=== PATIENT | male | born 1955 | race Caucasian/White ===

== ENCOUNTER 2020-08-31 14:17 | Emergency (ER) | payer OTHER, SELFPAY ==
[2020-08-31 14:23] VITALS: BP 132/73; BP 160/70; PULSE 70; PULSE 78; RESP 16; TEMP 37.5; O2SAT 99; BMI 38.7
--- NOTE | 2020-08-31 14:36 | XR_ITS ---
EXAMINATION: XR CHEST CLINICAL INFORMATION: SOB and cough. COMPARISON: Chest 06/23/2019 TECHNIQUE: Frontal view of the chest was obtained. FINDINGS: Lungs are well-expanded with patchy hazy opacities seen in both midlungs and lower lobes since 06/23/2019. No confluent infiltrate or pleural effusion seen. The heart size and pulmonary vascularity is normal. There is moderate spondylosis dorsal spine. XR/XR chest 1V IMPRESSION: There is new patchy hazy opacities in both midlungs suspicious for developing infiltrates.
--- NOTE | 2020-08-31 14:36 | ED.GENADULT ---
HPI - General Adult General Chief complaint: General Medical Stated complaint: FLU LIKE SYMPTOMS Time Seen by Provider: 08/31/20 14:24 Source: patient Mode of arrival: ambulatory Limitations: no limitations History of Present Illness HPI narrative: 65 y/o male with history of HTN & DM who presents with 3 days of flu-like symptoms including body aches, nasal congestion, nausea, decreased appetite, SOB, dry cough and intermittent dizziness. He lives with his girlfriend who is COVID-19 positive and they have been continuing to sleep in the same bed. He states he gets dizzy when he changes position too quickly and it resolves within a few seconds. He has been drinking gastorade and eating soup but has nausea when he eats. Two episodes of loose stools yesterday but now resolved. No vomiting, abd pain, fever, chills, urinary symptoms. MD complaint: COVID symptoms Onset (ago): day(s) (3) Location: head and abdomen Radiation: non-radiation Severity: moderate Quality: aching Pain Consistency: intermittent Relieving factors: rest Exacerbating factors: movement Associated symptoms: cough, headaches, loss of appetite and malaise Treatments prior to arrival: none Related Data Previous Rx's Medication Instructions Recorded azithromycin [Zithromax Z-Fei] See Rx Instructions .ROUTE 08/31/20 .COMPLEX #6 tab prednisone 40 mg PO DAILY 5 Days #10 tab 08/31/20 Allergies Allergy/AdvReac Type Severity Reaction Status Date / Time acetaminophen [Percocet] Allergy Unknown Verified 10/25/19 00:00 oxycodone [From PERCOCET] Allergy Unknown SWELLING Unverified 05/22/20 15:37 DIZZINESS Review of Systems Review of Systems: Constitutional: No Fever, No Chills ENT/Mouth: No sore throat, No Rhinorrhea, No Swallowing Difficulty Eyes: No Eye Pain, No Swelling, No Redness Cardiovascular: No Chest Pain, No SOB, No Orthopnea, No Edema Respiratory: + Cough, No Sputum, No Wheezing, No dyspnea Gastrointestinal: + Nausea, No Vomiting, + Diarrhea, No abdominal Pain Genitourinary: No Dysuria, No Urinary Frequency, No Hematuria Musculoskeletal: No joint pain, + Myalgias Skin: No Skin Lesions, No rash Neuro: + Weakness (mild, generalized), No Numbness, + Dizziness, + Headache Psych: No Anxiety/Panic, No Depression Heme/Lymph: No Bruising, No Lymphadenopathy Endocrine: No Polyuria, No Polydipsia [facility] Past Medical History Medical History (Updated 08/31/20 @ 15:11 by BARRY Johnson) Diabetic acetonemia HTN (hypertension) Social History Social History Advance Directives: No Advance Directives Information Provided: No Physical Exam Vital Signs: Vital Signs: Last Vital Signs Temp 99.5 F 08/31/20 14:23 Pulse 78 08/31/20 14:23 Resp 16 08/31/20 14:23 BP 132/73 08/31/20 14:23 Pulse Ox 99 08/31/20 14:23 Body Mass Index 38.7 Appearance: Alert. Oriented X3. No acute distress. Eyes: Pupils equal, round and reactive to light. ENT: Pharynx normal. Neck: Normal inspection. Neck supple. CVS: Normal heart rate and rhythm. Pulses normal. Respiratory: No respiratory distress. Breath sounds normal. Abdomen: Soft and nontender. +BS x4 Skin: Skin warm and dry. Normal skin color. Normal skin turgor. No rashes. Extremities: No lower extremity edema. Negative Hannah's sign Neuro: Oriented X 3. No motor deficit. No sensory deficit. Course Course Course Narrative: 65 y/o male with history of HTN and DM presents with COVID-19 symptoms x3 days after direct exposure. His vital signs are normal aside from low grade temp 99.5. Exam is benign. Will check resp panel and orthostatic VS. Toradol and Zofran ordered as well as gentle IVF. Anticipate d/c once gently hydrated. Medical Decision Making Lab Data Labs: Lab Results 08/31/20 Range/Units 15:23 Coronavirus (PCR) POSITIVE A (Negative) Influenza Type A (PCR) NEGATIVE (Negative) Influenza Type B (PCR) NEGATIVE (Negative) RSV RNA Qual (PCR) NEGATIVE (Negative) Discharge Plan Discharge Clinical Impression: COVID-19 Patient Disposition: Home, Self-Care Instructions: COVID-19 (Coronavirus Disease 2019) (ED) Additional Instructions: You were found to be COVID-19 POSITIVE today. Your vital signs were normal. It is safe for you to be discharged from the hospital at this time. It is important that you rest & stay hydrated. Do not go out in public for the next 2 weeks. Take the prescribed antibiotic and steroid for abnormal chest x-ray. Start taking these today. Take over the counter cold/flu medications as needed for your symptoms. Take Tylenol and/or Motrin as needed for body aches, headaches, and fevers. Follow up with your doctor this week. If you develop shortness of breath, difficulty breathing, chest pain or any other concerning symptom to you call 911 or come back to the ER for further evaluation. Prescriptions: New azithromycin [Zithromax Z-Fei] 250 mg tablet See Rx Instructions .ROUTE .COMPLEX Qty: 6 RF: 0 prednisone 20 mg tablet 40 mg PO DAILY 5 Days Qty: 10 RF: 0
[2020-08-31] MEDS: Ketorolac Tromethamine 30 MG/ML VIAL IM (14:52)
[2020-08-31] MEDS: 0.9 % Sodium Chloride 1,000 ML 999 ML IVCONT (14:53)
[2020-08-31 16:08] LABS: Influenza A PCR NEGATIVE (Negative); Influenza B PCR NEGATIVE (Negative); Resp Syncy Virus RNA Qual PCR NEGATIVE (Negative); SARS COV2 PCR INHOUSE POSITIVE (Negative)
== END 2020-08-31 16:24 | disposition home or self-care (01) ==
PROVIDERS: Physician Assistant; Emergency Provider Emergency Medicine Emergency Medical Services
DX: U07.1 COVID-19 (principal); M79.10 Myalgia, unspecified site; R05 Cough; Z79.899 Other long term (current) drug therapy
CPT/HCPCS: 0241U; 71045; 96360; 96372; 99283; 99284; J1885

== ENCOUNTER → 2021-01-01 08:03 | Outpatient (BNVA) | payer OTHER, SELFPAY | PROVIDERS: PCP Family Medicine; Visit Provider Nurse Practitioner | CPT/HCPCS: Q3014 ==

== ENCOUNTER 2021-01-06 06:22 | Outpatient (REF) | payer OTHER, SELFPAY ==
[2021-01-06 07:45] LABS: Alanine Aminotransferase 16 U/L (0-40); Albumin Level 4.2 g/dL (3.5-5.0); Alkaline Phosphatase 95 U/L (39-117); Anion Gap 10 (12-20); Aspartate Amino Transferase 19 U/L (5-37); Bilirubin Total 0.6 mg/dL (0.0-1.0); Blood Urea Nitrogen 14 mg/dL (9-16); Calcium 9.6 mg/dL (8.4-10.2); Carbon Dioxide 30 mmol/L (22-29); Chloride 105 mmol/L (96-108); Estimated Glomerular Filt Rate > 60; Glucose Random 140 mg/dL (60-115); Potassium 4.1 mmol/L (3.3-5.1); Sodium 141 mmol/L (135-145); Total Protein 7.1 g/dL (6.5-8.0)
== END 2021-01-06 06:23 | disposition home or self-care (01) ==
LOC: HO.LAB 06:22
PROVIDERS: PCP Family Medicine; Visit Provider Nurse Practitioner
DX: Z12.11 Encounter for screening for malignant neoplasm of colon (principal)
CPT/HCPCS: 36415; 80053

== ENCOUNTER 2021-02-17 06:19 | Day surgery (SDC) | payer OTHER, SELFPAY ==
--- NOTE | 2021-02-16 09:48 | HO.ANESPROP2 ---
Documented by User: Natalie Oliveira 02/16/21 09:52 HPI - Anesthesia Eval Consult details Narrative: 65yo M for Colonoscopy PMFSH Active Problems Active Problems: All Active Problems (Updated 01/01/21 @ 08:41 by MILO Rice) Colon cancer screening (Acute) COVID-19 (Acute) Past Medical History Medical History Diabetic acetonemia HTN (hypertension) Family History Family History Mother Cancer HTN (hypertension) Diabetes Father Stroke Surgical History Surgical History H/O shoulder surgery Social History Social History Household Members: Friend(s) Alcohol intake: current Alcohol intake frequency: does not drink Patient Tobacco Use Status: Former Tobacco user Use of substances other than those prescribed or required for medical reasons: No Are you DNR?: No Advance Directives: No Advance Directives Information Provided: No Meds Allergies Allergy/AdvReac Type Severity Reaction Status Date / Time acetaminophen [Percocet] Allergy Mild Dizziness Verified 02/17/21 06:31 oxycodone [From PERCOCET] Allergy Mild SWELLING Verified 02/17/21 06:31 DIZZINESS Home Medications Medication Instructions Recorded Confirmed Last Taken Type lisinopril 20 mg tablet 20 mg PO DAILY 01/01/21 02/17/21 05:25 History metformin 500 mg tablet 500 mg PO DAILY 01/01/21 Unknown History Exam Exam Date and Time: February 16, 2021 0948 Pertinent Lab Results Pertinent Lab Results: Laboratory Tests 10/05/19 01/06/21 01:12 06:35 WBC 5.2 Hgb 14.9 Hct 46.4 Plt Count 193 Sodium 141 Potassium 4.1 Chloride 105 Carbon Dioxide 30 H BUN 14 Creatinine 1.10 Assessment and Plan Assessment Anesthesia Assessment: Chart Reviewed Documented by User: Giovany Blas 02/17/21 07:16 [facility] Past Medical History Medical History Diabetic acetonemia HTN (hypertension) Family History Family History Mother Cancer HTN (hypertension) Diabetes Father Stroke Surgical History Surgical History H/O shoulder surgery Social History Social History Household Members: Friend(s) Alcohol intake: current Alcohol intake frequency: does not drink Patient Tobacco Use Status: Former Tobacco user Use of substances other than those prescribed or required for medical reasons: No Are you DNR?: No Advance Directives: No Advance Directives Information Provided: No Meds Allergies Allergy/AdvReac Type Severity Reaction Status Date / Time acetaminophen [Percocet] Allergy Mild Dizziness Verified 02/17/21 06:31 oxycodone [From PERCOCET] Allergy Mild SWELLING Verified 02/17/21 06:31 DIZZINESS Home Medications Medication Instructions Recorded Confirmed Last Taken Type lisinopril 20 mg tablet 20 mg PO DAILY 01/01/21 02/17/21 05:25 History metformin 500 mg tablet 500 mg PO DAILY 01/01/21 Unknown History Exam Airway Mallampati Class: III TM Dist: >3cm Neck ROM: Full Denture: Lower
[2021-02-17 06:42] VITALS: BMI 38.4
[2021-02-17 06:43] LABS: Glucose, Whole Blood 138 mg/dL (60-115)
[2021-02-17 06:45] VITALS: BP 147/85; PULSE 72; RESP 18; TEMP 36.7; O2SAT 98
[2021-02-17] MEDS: Lactated Ringers 1,000 ML 100 ML IVCONT (06:52)
--- NOTE | 2021-02-17 07:22 | MHC.SHP ---
Pre-Procedural Eval Section A The patient is an INPATIENT: No The History & Physical has been completed within 30 days and I have reviewed it.: No Section B Chief Complaint: Screening Details of Present Illness: Colon cancer screening, constipation, hemorrhoids Relevant Family History (Specify if Yes): Yes Relevant Social History: None Present Medications: see Short Stay Collaborative assessment Medical History: Significant History (Diabetic acetonemia HTN (hypertension)) History of Previous Operations: Relevant previous surgery/procedure and date(s) (History of shoulder surgery) Allergies: Allergies Allergy/AdvReac Type Severity Reaction Status Date / Time acetaminophen [Percocet] Allergy Mild Dizziness Verified 02/17/21 06:31 oxycodone [From PERCOCET] Allergy Mild SWELLING Verified 02/17/21 06:31 DIZZINESS Review of Systems Sugical H&P ROS: Negative: Constitution, Cardiovascular, Respiratory and Gastrointestinal Exam Surgical H&P Exam: Normal: Heart, Normal: Lungs, Normal: Extremities and Normal: Abdomen Plan Diagnosis/Plan: Unchanged I have reviewed the history and physical and performed a pertinent physical examination on my patient. No changes have occurred unless specified.
--- NOTE | 2021-02-17 07:41 | P.OP_ITS ---
Operative Note Operative Note Date of Service: 02/17/21 Narrative: Pre-op diagnosis: colon cancer screening, chronic constipation Post-op diagnosis: other (Colon polyps, diverticulosis, hemorrhoids, hypertrophied anal papilla) Procedure: COLONOSCOPY TILL CECUM WITH BIOPSIES Consent: Indications for the procedure and potential complications of bleeding, perforation, reaction to medications and missed diagnosis were discussed with the patient and informed consent was obtained. Instrument: Olympus PCF H 190 L variable stiffness pediatric colonoscope Monitoring: Vital signs and clinical assessment, intermittent blood pressure monitoring, continuous EKG monitoring, Pulse oximetry and Carbon Dioxide monitoring were done throughout the procedure. Colon withdrawl time was 26 minutes. Procedure: The patient was placed in the left lateral decubitis position and pre-procedure medications were administered. After a digital rectal examination of the ano-rectum, the video colonoscope was inserted into the rectum and advanced through the colon to the cecum. The colonoscope was slowly withdrawn in a retrograde panoramic fashion and the colon mucosa was carefully examined including a retroflexed view of the rectum. Findings and interventions are described below. Procedure Difficulty: Without difficulty Findings: Terminal Ileum: Not evaluated Cecum: Normal Ascending Colon: Normal Transverse Colon: Three 4-5 mm sessile polyps removed with a cold bx Descending Colon: Moderate diverticulosis Sigmoid Colon: Moderate diverticulosis Rectum: Normal Ano-rectum: A 2 cms polyp on retroflexed and antegrade exam - biopsied (likely hypertrophied anal papilla) Small internal hemorrhoids Colon preparation: Good after copious irrigation and fair in some areas and poor Impression and Post Procedure Diagnosis: Colonoscopy Findings: Three small removed Moderate diverticulosis seen in the left colon A 2 cms polyp on retroflexed and antegrade exam - biopsied (likely hypertrophied anal papilla) Small internal hemorrhoids Plan: Await pathology results Patient has an appointment on 03/06/21 in the GI Clinic with Atiya Olea NP. Repeat Colonoscopy interval based on path results - in 5 years if polyps are adenomatous and due to fair prep. Above findings were reviewed with the patient and colon polyps and diverticulosis handouts were given in the discharge area Surgeon: Jannet Lamb MD Anesthesia: MAC (Dr Blas) Was an Wildlife Enforcement Major used for this Procedure?: Yes Wildlife Enforcement Major: Jeff Navarrete Estimated blood loss (mL): 0 Pathology: other (A. TC polyps x 3, B. Rectal polyp) Condition: stable Disposition: PACU
[2021-02-17 08:27] VITALS: BP 90/63; PULSE 66; RESP 16; TEMP 36.7; O2SAT 100
[2021-02-17 08:40] VITALS: BP 111/73; PULSE 64; RESP 18; O2SAT 99
== END 2021-02-17 09:03 | disposition home or self-care (01) ==
PROVIDERS: PCP Family Medicine; Visit Provider Internal Medicine Gastroenterology
PROC: 0DJD8ZZ Inspection of Lower Intestinal Tract, Via Natural or Artificial Opening Endoscopic (ICD-10-PCS; CPT 45378; principal; 2021-02-17 07:30)
DX: Z12.11 Encounter for screening for malignant neoplasm of colon (principal); K63.5 Polyp of colon; K62.89 Other specified diseases of anus and rectum; K57.30 Diverticulosis of large intestine without perforation or abscess without bleeding; K64.8 Other hemorrhoids; K59.09 Other constipation; I10 Essential (primary) hypertension; Z79.899 Other long term (current) drug therapy; Z86.16 Personal history of COVID-19; Z88.8 Allergy status to other drugs, medicaments and biological substances
CPT/HCPCS: 45380; 82947; 88305

== ENCOUNTER → 2021-04-17 12:52 | Outpatient (BNVA) | payer OTHER, SELFPAY | PROVIDERS: Referring Provider Family Medicine; Visit Provider Nurse Practitioner | DX: Z12.11 Encounter for screening for malignant neoplasm of colon (principal) | CPT/HCPCS: 99212 ==

== ENCOUNTER 2023-03-17 09:58 | Outpatient (REF) | payer OTHER, SELFPAY ==
[2023-03-17 12:32] LABS: Cholesterol 219 mg/dL; HDL Cholesterol 43 mg/dL; LDL Cholesterol Calculated 158 mg/dl; Triglycerides 90 mg/dL
[2023-03-17 12:41] LABS: Creatinine Urine 83.39 mg/dL; Microalbum/Creatinine Ratio Ur 15.5 ug/mg cr
== END 2023-03-17 09:59 | disposition home or self-care (01) ==
LOC: HO.HHCL 09:58
PROVIDERS: Visit Provider Registered Nurse
DX: E11.9 Type 2 diabetes mellitus without complications (principal)
CPT/HCPCS: 36415; 80061; 82043

== ENCOUNTER 2023-03-17 10:24 | Outpatient (REF) | payer OTHER, SELFPAY ==
--- NOTE | ~2023-03-17 | XR_ITS ---
EXAMINATION: XR KNEE, LEFT CLINICAL INFORMATION: Left knee pain aggravated by walking long distances and up stairs. COMPARISON: None available. TECHNIQUE: 4 views of the left knee. FINDINGS: Mild degenerative changes are present predominantly in the patellofemoral compartment with narrowing. No chondrocalcinosis or fractures. XR/XR knee LT 4V IMPRESSION: Mild degenerative changes in the patellofemoral compartment.
== END 2023-03-17 10:25 | disposition home or self-care (01) ==
LOC: HO.HHCX 10:24
PROVIDERS: Visit Provider Registered Nurse
DX: M25.562 Pain in left knee (principal)
CPT/HCPCS: 73564

== ENCOUNTER 2023-05-05 12:26 | Outpatient (REF) | payer OTHER, SELFPAY ==
--- NOTE | ~2023-05-05 | XR_ITS ---
EXAMINATION: XR KNEE AP STANDING CLINICAL INFORMATION: Pain in unspecified knee COMPARISON: Correlation is made with left knee radiographs 03/17/2023. TECHNIQUE: AP bilateral standing view of the knees was obtained. FINDINGS: No fracture or dislocation. Alignment is anatomic. Joint spaces are maintained. No abnormal soft tissue calcification. XR/XR knee standing BI IMPRESSION: No significant abnormality is seen in the knees.
== END 2023-05-05 12:27 | disposition home or self-care (01) ==
LOC: HO.HOSX 12:26
PROVIDERS: Visit Provider Orthopaedic Surgery
DX: M17.12 Unilateral primary osteoarthritis, left knee (principal)
CPT/HCPCS: 20610; 73565; J1100

== ENCOUNTER 2023-05-05 13:42 | Outpatient (AMB) | payer OTHER, SELFPAY ==
--- NOTE | 2023-05-05 13:43 | MHC.OFFVIS ---
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 Patient reports that this pain has been ongoing for about --. His pain increases with prolonged walking & climbing stairs . 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 He is recently retired. He has pain with daily activity, worse with worse with prolonged walking or using stairs. He denies any prior treatment [facility] Medical History Diabetic acetonemia HTN (hypertension) Surgical History H/O shoulder surgery Family History Mother Cancer HTN (hypertension) Diabetes Father Stroke Social History Household Members: Friend(s) Alcohol intake: current Alcohol intake frequency: does not drink Patient Tobacco Use Status: Former Tobacco user Review of Systems Const All systems reviewed & are unremarkable except as noted in HPI and below Physical Exam Const General: no acute distress, alert and awake Orientation/consciousness: patient oriented x3 HEENT Head: Yes normocephalic and Yes atraumatic Eyes EOM: EOMs intact bilaterally Resp Effort & Inspection: normal respiratory effort and able to speak in complete sentences Cardio Jugular venous distension: no JVD Skin General skin exam: turgor normal Rashes: no rashes Neuro General: patient oriented x3 Extrem Other: Left Knee: + retropatellar TTP Full ROM No effusion Psych Appearance: grossly normal Affect: normal affect Attitude: cooperative Office Procedures Joint Injection/Drain Joint Injection/Drain Details: Injected 1 mL of Decadron and 3 mL 1% lidocaine and 3 mL of 0.25% Marcaine. Site was prepped using aseptic technique. Patient tolerated the procedure well. Primary Site: left knee Approach Used: anterolateral Coding - Large joint Procedure code (CPT) selection complete Results Reviewed Results Reviewed: 05/05/23 14:31 BUPivacaine MPF 0.25 % [Sensorcaine-MPF 0.25% 10 ML] 10 ml .ROUTE .STK-MED ONE Lidocaine HCl 2 % MPF [Xylocaine 2 % MPF] 5 ml .ROUTE .STK-MED ONE dexAMETHasone sod phosphate [Decadron] 4 mg .ROUTE .STK-MED ONE I personally reviewed relevant radiographs. Mild left PF OA Assessment & Plan Assessment & Plan (1) Osteoarthritis of left knee: Code(s): M17.12 - Unilateral primary osteoarthritis, left knee Plan: This is a 68 year old man with mild left PF OA. He has pain with daily activity, worse with prolonged ambulation or using stairs. He denies any prior treatment. I discussed her diagnosis and treatment options. I recommend he continue activity as tolerated. I injected his left knee today, which he tolerated well, and he was fitted for a knee brace to wear with daily activity. He can follow up prn. Plan Scribed for Hans Riley MD by Junior Concepcion, medical claims representative, on 05/05/23 at 2:45 PM, EST. Orders: Orders XR knee standing BI 05/05/23 M25.569 - Pain in unspecified knee Coding Level of Care Code New Pt Level 3 (62582) Diagnoses Osteoarthritis of left knee M17.12 CPT Codes Coding - Large joint: 50547 - Large joint ([id number])
== END 2023-05-05 14:58 | disposition home or self-care (01) ==
PROVIDERS: Visit Provider Orthopaedic Surgery
DX: M17.12 Unilateral primary osteoarthritis, left knee (principal)
CPT/HCPCS: 20610; 99204

== ENCOUNTER 2023-12-14 10:12 | Outpatient (REF) | payer MEDICARE, SELFPAY ==
[2023-12-14 11:45] LABS: MANUAL DIFF FLAG NO
[2023-12-14 12:08] LABS: Basophils Percent Auto 0.8 % (0-2); Eosinophils Absolute Auto 0.1 X10*3/uL (0.0-0.4); Eosinophils Percent Auto 2.6 % (0-4); Hematocrit 47.1 % (42.0-52.0); Hemoglobin 15.6 g/dl (14.0-18.0); Imm Gran Abs Auto 0.02 X10*3/uL (0.00-0.03); Imm Gran Pct Auto 0.4 % (0.0-0.4); Lymphocytes Absolute Auto 1.8 X10*3/uL (1.2-4.9); Lymphocytes Percent Auto 35.2 % (20-40); Mean Corpuscular HGB Conc 33.1 g/dl (31.0-36.0); Mean Corpuscular Hemoglobin 28.6 pg (27.0-33.0); Mean Corpuscular Volume 86.4 fL (80.0-98.0); Mean Platelet Volume 11.5 fL (9.4-12.4); Monocytes Absolute Auto 0.7 X10*3/uL (0.1-1.2); Monocytes Percent Auto 13.3 % (2-11); Neutrophils Absolute Auto 2.4 x10*3/uL (2.0-8.3); Neutrophils Percent Auto 47.7 % (45-73); Platelet Count 216 X10*3/uL (160-400); Red Blood Count 5.45 X10*6/uL (4.60-5.80); Red Cell Distribution Width 13.4 % (11.0-16.0)
[2023-12-14 12:19] LABS: Alanine Aminotransferase 23 U/L (0-40); Albumin Level 4.3 g/dL (3.5-5.0); Alkaline Phosphatase 91 U/L (39-117); Anion Gap 11 (12-20); Aspartate Amino Transferase 21 U/L (5-37); Bilirubin Total 0.7 mg/dL (0.0-1.0); Blood Urea Nitrogen 18 mg/dL (9-16); Calcium 9.7 mg/dL (8.4-10.2); Carbon Dioxide 27 mmol/L (22-29); Chloride 105 mmol/L (96-108); Cholesterol 211 mg/dL (<200); Estimated Glomerular Filt Rate > 60; Glucose Random 124 mg/dL (60-115); HDL Cholesterol 42 mg/dL (>40); LDL Cholesterol Calculated 153 mg/dL (<100); Potassium 3.9 mmol/L (3.3-5.1); Sodium 139 mmol/L (135-145); Total Protein 7.7 g/dL (6.5-8.0); Triglycerides 84 mg/dL (<150)
[2023-12-14 12:22] LABS: Estimated Average Glucose 146 mg/dL; Hemoglobin A1c % 6.7 % (<6.0)
[2023-12-14 12:30] LABS: HIV AB/AG Nonreactive (Nonreactive); HIV Num 1 0.04 S/CO (0.00-0.99)
[2023-12-14 12:32] LABS: Prostate Specific Antigen 2.89 ng/mL (<0.05-4.0)
[2023-12-14 12:37] LABS: TSH reflex Free T4 1.97 uIU/mL (0.32-4.0); Vitamin D 25-OH Total 19.6 ng/mL (>30)
[2023-12-14 12:39] LABS: Creatinine Urine 90.57 mg/dL
[2023-12-15 11:48] LABS: RPR Rapid Plasma Reagin NON-REACTIVE (NON-REACTIVE)
[2023-12-15 13:59] LABS: HCV Log PCR <1.18 NOT DETECTED Log IU/mL (NOT DETECTED); HepC Viral Load <15 NOT DETECTED IU/mL (NOT DETECTED)
== END 2023-12-14 10:13 | disposition home or self-care (01) ==
LOC: HO.HHCL 10:12
PROVIDERS: Visit Provider Registered Nurse
DX: Z00.00 Encounter for general adult medical examination without abnormal findings (principal); Z12.5 Encounter for screening for malignant neoplasm of prostate; Z13.6 Encounter for screening for cardiovascular disorders; E55.9 Vitamin D deficiency, unspecified
CPT/HCPCS: 36415; 80053; 80061; 82043; 82306; 82570; 83036; 84153; 84443; 85025; 86592; 87389; 87522

== ENCOUNTER 2025-06-10 08:31 | Outpatient (REF) | payer MEDICARE, SELFPAY ==
--- OUTSIDE RECORDS SUMMARY | 2025-06-05 10:00 | XMS_ITS | Encounter Summary ---
Author Organization [email or web address] Address [address] [place] [address] [address] [place] [address] Care Team Providers Care Computer Network Specialist Name Role Phone Jeane Barnes Primary Care Provider [phone] Reason for Visit * Reason Comments Follow-up Encounter Details Date Type Department Care Team ([facility] Contact Info) Description 06/05/2025 10:00 AM EDT Office Visit [facility] [address] [place] [address] Jeane Barnes FNP [address] [place] [address] Encounter for immunization; Type 2 diabetes mellitus without complication, without long-term current use of insulin (HCC) Social History Tobacco Use Types Packs/Day Years Used Date Smoking Tobacco: Former Cigarettes Smokeless Tobacco: Never Tobacco Cessation:Counseling Given: Not Answered Alcohol Use Standard Drinks/Week Comments Not Currently 0 (1 standard drink = 0.6 oz pur e alcohol) Depression Answer Date Recorded Patient Health Questionnaire-9 Score 0 06/05/2025 Patient Health Questionnaire-9 Score 0 06/05/2025 Last PHQ-9: Questionnaire Data Not on file 1 Housing Stability Answer Date Recorded What is your housing situation today? I have isaac peralta 12/07/[address] you li ve. Do you have problems with any of the following? None of the above 12/07/2024 Food Insecurity Answer Date Recorded Within the past 12 months, y ou worried that your food would run out before you got money to buy more: Never True 12/07/2024 Within the past 12 months,th e food you bought just didn't last and you didn't have enough money to get more: Never True 12/2024 Transportation Answer Date Recorded In the past 12 months, has l ack of transportation kept you from medical appts, meetings, work or from getting things needed for daily living? Yes, it has kept me from medical appointments or getting medications. 12/07/2024 Utilities Answer Date Recorded In the past 12 months, has t he electric, gas, oil or water company threatened to shut off services in your home? No 12/07/2024 Depression Answer Date Recorded Patient Health Questionnaire-2 Score 0 06/05/2025 Internet Access Answer Date Recorded Internet Access Q1 Yes 12/07/2024 Internet Access Q2 Not on file 12/07/2024 Sex and Gender Information Value Date Recorded Sex Assigned at Male 07/05/2022 10:35 AM EDT Legal Sex Male 10:35 AM EDT Gender Identity Male 07/05/2022 10:35 AM EDT Sexual Orientation Straight 08/09/2022 10 :38 AM EST documented as of this encounter Last Filed Vital Signs Vital Sign Reading Time Taken Comments Blood Pressure 130/80 06/05/2025 10:50 AM EDT Pulse 75 06/05/2025 10:50 AM EDT Temperature 36.6 C (97.9 F) 06/05/2025 10:50 AM EDT Respiratory Rate 20 06/05/2025 10:50 AM EDT Oxygen Saturation 98% 06/05/2025 10:50 AM EDT Inhaled Oxygen Concentration - - Weight 104 kg (230 lb) 06/05/2025 10:50 AM EDT Height 167.6 cm (5' 6 ) 06/05/2025 10:50 AM EDT Body Mass Index 37.12 06/05/2025 10:50 AM EDT documented in this encounter Functional Status * Over the past 2 weeks, how often have you been bothered by any of the following problems? Question Answer Date of Assessment Author Patient Health Questionnaire -2 Score 0 06/05/2025 10:54 AM EDT Cheryl Rivera MA * Little interest or pleasure in doing things Answer Date of Assessment Author Not at all 06/05/2025 10:54 AM EDT Cheryl Rivera MA * Feeling down, depressed, or hopeless Answer Date of Assessment Author Not at all 06/05/2025 10:54 AM Cheryl Clinton MA * Trouble falling or staying asleep, or sleeping too much Answer Date of Assessment Author Not at all 06/05/2025 10:54 AM Cheryl Clinton MA * Feeling tired or having little energy Answer Date of Assessment Author Not at all 06/05/2025 10:54 AM Cheryl Clinton MA * Poor appetite or overeating Answer Date of Assessment Author Not at all 06/05/2025 10:54 AM Cheryl Clinton MA * Feeling bad about yourself - or that you are a failure or have let yourself or your family down Answer Date of Assessment Author Not at all 06/05/2025 10:54 AM Cheryl Clinton MA * Trouble concentrating on things, such as reading the newspaper or watching television Answer Date of Assessment Author Not at all 06/05/2025 10:54 AM Cheryl Clinton MA * Moving or speaking so slowly that other people could have noticed? Or the opposite - being so fidgety or restless that you have been moving around a lot more than usual. Answer Date of Assessment Author Not at all 06/05/2025 10:54 AM Cheryl Clinton MA * Thoughts that you would be better off or hurting yourself in some way Answer Date of Assessment Author Not at all 06/05/2025 10:54 AM Cheryl Clinton MA * Patient Health Questionnaire-9 Score Answer Date of Assessment Author 0 06/05/2025 10:54 AM Cheryl Clinton MA * Over the last 2 weeks, how often have you been bothered by any of the following problems? Question Answer Date of Assessment Author Feeling nervous, anxious, or on edge 0 06/05/2025 10:54 AM Cheryl Clinton MA Not being able to stop or co ntrol worrying 0 06/05/2025 10:54 AM Cheryl Clinton MA Worrying too much about diff erent things 0 06/05/2025 10:54 AM Cheryl Clinton MA Trouble relaxing 0 06/05/2025 10:54 AM EDT Cheryl Rivera MA Being so restless that it is hard to sit still 0 06/05/2025 10:54 AM EDT Cheryl Rivera MA Becoming easily annoyed or irritable 0 06/05/2025 10:54 AM EDT Cheryl Rivera MA Feeling afraid as if somethi ng awful might happen 0 06/05/2025 10:54 AM EDT Cheryl Rivera MA KIERA-7 Total Score 0 06/05/2025 10:54 AM EDT Cheryl Rivera MA documented as of this encounter Plan of Treatment Upcoming Encounters Date Type Department Care Team (Late st Contact Info) Description 09/26/2025 1:00 PM EST Office Visit [facility] [address] [place] [address] AlexeyWaqasn, OD [address] [place] [address] documented as of this encounter Procedures Procedure Name Priority Date/Time Associated Diagnosis Comments POCT GLYCATED HEMOGLOBIN, TOTAL Routine 06/05/2025 10:53 AM EDT Type 2 diabetes mellitus without complication, without long-term current use of insulin (HCC) POCT GLUCOSE Routine 06/05/2025 10:52 AM EDT Type 2 diabetes mellitus without complication, without long-term current use of insulin (HCC) documented in this encounter Results * (ABNORMAL) POCT Hgb A1c (06/05/2025 10:53 AM EDT) Hemoglobin A1C 7.3(A) 4.0 - 5.7 % QC Media Lot # [id number] Lot# Expiration Date ,999,688 Blood 06/05/2025 10:5 3 AM EDT us Jeane Barnes PLASTER MOLDER POINT OF CARE TEST ENTER/EDIT ORDERABLES Final Result * POCT Glucose (06/05/2025 10:52 AM EDT) Glucose Blood, POC 120 60 - 200 mg/dL QC Media Lot # [id number] Lot# Expiration Date [id number] Blood Capillary blood specimen / Unknown 06/05/2025 10:52 AM EDT Jeane [place] POINT OF CARE TEST ENTER/EDIT ORDERABLES Final Result documented in this encounter Visit Diagnoses Diagnosis Encounter for immunization Type 2 diabetes mellitus without complication, without long-term current use of insulin (HCC) documented in this encounter Additional Health Concerns Assessment Noted Time PHQ-9 Depression Total Score: 0 06/05/20 25 10:54 AM EDT documented as of this encounter Care Teams Computer Network Specialist Relationship Specialty Start Date End Date Jeane Barnes FNP [address] [place] [id number] PCP - General Family Medicine 06/26/21 documented as of this encounter
--- OUTSIDE RECORDS SUMMARY | 2025-06-10 09:07 | XMS_ITS | Patient Health Record ---
Author Organization [facility] Address [address] [facility] [address] Care Team Providers Care Hse Manager Name Role Phone López Juárez MD Primary Care Provider Vernon Winn Unavailable [phone] Allergies Allergen (clinical drug ingredient) Drug/Non Drug Allergy documented on EMR Reaction Allergy Type Onset Date Status acetaminophen / oxycodone Percocet dizzy/woozy Drug Allergy Active Reason For Referral No Information Medications Medication SIG (Take, Route, Fr equency, Duration) Notes Start Date End Date Status Physical Therapy 3-4x per week for 3-4 weeks 12/02 Active Social History Tobacco use other than smoking: Question Answer Notes Are you an other tobacco user? No Problems No Known Problems Plan Of Treatment No Information Insurance Providers Payer Name Payer Address Payer Phone Subscriber Number Group Number Insured Name Patient Relationship to Insured Coverage Start Date Coverage End Date [facility] [address] [place] [address] [id number] [address] [place] Self - patient is the insured Medical (General) History Medical History History ICD Code Chicken pox Surgical History Surgery Date(Month/Year) eye surgery
--- OUTSIDE RECORDS SUMMARY | 2025-06-10 09:07 | XMS_ITS | Clinical Summary ---
Author Organization [employer] Address [address] [place] [address] [address] [place] [address] Care Team Providers Care Advertising Consultant Name Role Phone LucreciaJeane gonzalez AMAN Primary Care Provider [phone] Allergies Active Allergy Reactions Criticality Noted Date Comments Oxycodone Anaphylaxis High 05/17/2019 Medications ammonium lactate (Amlactin) 12 % cream Use topically in dry areas twice a day 300 g 1 024 Active cholecalciferol (D3-1000) 25 MCG (1000 UT) capsuleIndication s:Vitamin D deficiency TOME KIANA CAPSULA TODOS [place] 90 capsule 1 024 Active Additional Information Patient not taking.Reported on 08/22/2024 loratadine (Claritin) 10 MG tabletIndications :Seasonal allergies TAKE 1 TABLET BY MOUTH EVERY DAY NEEDED FOR ALLERGIES 90 tablet 3 025 Active lisinopril-hydroC HLOROthiazide 10-12.5 MG tabletIndications :Essential hypertension TOME 1 TABLETA POR VIA ORAL TODOS [place] 90 tablet 3 025 Active rosuvastatin (Crestor) 40 MG tabletIndications :Hyperlipidemia, unspecified hyperlipidemia type TOME KIANA TABLETA POR VIA ORAL TODOS [place] BEFORE BED 90 tablet 3 025 Active Blood Glucose Monitoring Suppl (ONE TOUCH ULTRA 2) w/Device kitIndications:Ty pe 2 diabetes mellitus without complication, without long-term current use of insulin (HCC) Use to test blood sugar 1-2 times daily 1 kit 11 025 Active FREESTYLE LITE test stripIndications: Type 2 diabetes mellitus without complication, without long-term current use of insulin (HCC) Use to test blood sugar 1-2 times daily 100 each 12 025 2025 Active Lancets miscIndications:T ype 2 diabetes mellitus without complication, without long-term current use of insulin (HCC) Use to test blood sugar 1-2 times daily 100 each 11 Active Alcohol Swabs 70 % padsIndications:T ype 2 diabetes mellitus without complication, without long-term current use of insulin ([facility]) Use to test blood sugar 1-2 times daily 100 each 11 Active Blood Glucose Monitoring Suppl (FreeStyle [place] Lite) w/Device kitIndications:Ty pe 2 diabetes mellitus without complication, without long-term current use of insulin ([facility]) Use to test blood sugar 1-2 times daily 1 kit Active linaGLIPtin (Tradjenta) 5 MG tabletIndications :Type 2 diabetes mellitus without complication, without long-term current use of insulin ([facility]) Take 1 tablet (5 mg) by mouth in the morning. (Diabetes) 90 tablet 1 025 2025 Active empagliflozin (Jardiance) 25 MG TAKE 1 TABLET BY MOUTH EVERY DAY BEFORE BED (DIABETES) 90 tablet 1 Active empagliflozin (Jardiance) 25 MG Take 1 tablet (25 mg) by mouth Once per day. 90 tablet 1 025 2024 Discontinued Active Problems Problem Noted Date Diagnosed Date Tinea corporis 08/30/2024 Assessment & Plan (08/30/2024 9:32 AM EST): Patient here for c/o pruritic rash on his groin x 14 days. Seen here 1 week ago, treated with Econazole cream with only partial results. Pt discouraged would like to try something different since not significant improvement since last week Plan: stop Econazole Start Nystatin powder BID Derm appointment for evaluation given persistence. May need further evaluation Pt reports his DM is well controlled Hyperlipidemia 12/15/2023 Assessment & Plan (12/16/2024 3:23 PM EDT): Cont rosuvastatin 40mg nightly Repeat FLP Assessment & Plan (12/15/2023 8:48 AM EDT): Re-start rosuvastatin 40mg nightly Primary osteoarthritis of left knee 12/15/2023 Overview (12/15/2023): 03/17/23: Left Knee XR Impression - Mild degenerative changes in the patellofemoral compartment 05/05/23: Received steroid injection at [facility] with good effect Seasonal allergies 12/15/2023 Overview (12/15/2023): Loratadine 10mg daily PRN Chronic pain 08/10/2022 Essential hypertension 08/10/2022 Assessment & Plan (12/16/2024 3:16 PM EDT): -Continue lisinopril-hydrochlorothiazide 10-12.5mg daily. Reviewed med SE and safety -Lifestyle modifications recommended including low salt diet -ED precautions Assessment & Plan (12/15/2023 8:46 AM EDT): -Has been w/o BP meds x months r/t insurance -Previously well controlled with lisinopril-hydrochlorothiazide 20-12.5mg. Will re-start on lower dose -START lisinopril-hydrochlorothiazide 10-12.5mg daily. Reviewed med SE and safety -Lifestyle modifications recommended including low salt diet -ED precautions Assessment & Plan (03/17/2023 9:51 AM EDT): -Home readings well controlled: 120-130/70-80mmHg -Pt denies SALINAS, chest pain, blurry vision, SOB, N/V/D -Continue with lisinopril-hydrochlorothiazide 20-12.5mg daily -Notify the clinic with any episodes of dizziness or lightheadedness, or for any headaches or cough. Continue to monitor home BP and notify clinic if BP > 140/90 mmHg -Lifestyle modifications recommended including low salt diet Assessment & Plan (02/21/2023 11:09 AM EDT): -Home readings: 120-150/60-70mmHg -Pt denies SALINAS, chest pain, blurry vision, SOB, N/V/D -Continue with lisinopril-hydrochlorothiazide 20-12.5mg daily -Notify the clinic with any episodes of dizziness or lightheadedness, or for any headaches or cough. Continue to monitor home BP and notify clinic if BP > 140/90 mmHg -Lifestyle modifications recommended including low salt diet Assessment & Plan (09/06/2022 11:12 AM EST): -Home readings well controlled 120-130/70-80mmHg -Pt denies SALINAS, chest pain, blurry vision, SOB, N/V/D -Continue with lisinopril-hydrochlorothiazide 20-12.5mg daily -Notify the clinic with any episodes of dizziness or lightheadedness, or for any headaches or cough. Continue to monitor home BP and notify clinic if BP > 140/90 mmHg -Lifestyle modifications recommended including low salt diet Assessment & Plan (08/10/2022 6:54 PM EST): -Home readings well controlled 120-130/70-80mmHg -Pt denies SALINAS, chest pain, blurry vision, SOB, N/V/D -Continue with lisinopril-hydrochlorothiazide 20-12.5mg daily -Notify the clinic with any episodes of dizziness or lightheadedness, or for any headaches or cough. Continue to monitor home BP and notify clinic if BP > 140/90 mmHg -Lifestyle modifications recommended including low salt diet Migraine without aura, not refractory 08/10/2022 Vitamin D deficiency 08/10/2022 Assessment & Plan (12/16/2024 3:22 PM EDT): Hx of Vit D deficiency, check lab work to determine if supplementation appropriate Assessment & Plan (12/15/2023 8:46 AM EDT): Hx of Vit D deficiency, check lab work to determine if supplementation appropriate Type 2 diabetes mellitus without complication Overview (12/16/2024): Lab Results Component Value Date HGBA1C 7.2 (A) 12/14/2024 -Continue Jardiance 25 mg daily -A1c goal: <7% -Continue with therapeutic lifestyle interventions such as: exercise/walk as much as possible, decrease soda/sugary beverages, drink water, eat high fiber/whole grains, fresh or frozen fruits and vegetables, avoid greasy and/or sugary foods Microalbumin/Cr:Alb: WNL December 2023 Lipids: LDL 153, TC 211, TG 84, HDL 42 in December 2023. Pt had been without statin, restarted Eye exam: Sep 2024 - no diabetic retinopathy ([facility]) Dental: established with dental home Foot exam/peripheral pulses: referred to podiatry 06/22/22 ACEi/ARB: yes Statin: yes Assessment & Plan (12/16/2024 3:19 PM EDT): - Diabetes lab work ordered - No change in medications today as plan for lifestyle interventions to help bring A1c below 7 - Follow-up in 3 months, sooner as needed. Assessment & Plan (03/17/2023 9:52 AM EDT): -Well controlled per home BG readings -Continue Jardiance 10mg daily. Reviewed med safety and SE -Continue with therapeutic lifestyle interventions such as: exercise/walk as much as possible, decrease soda/sugary beverages, drink water, eat high fiber/whole grains, fresh or frozen fruits and vegetables, avoid greasy and/or sugary foods A1c: 7.0% February 2023 (goal </= 7) Microalbumin/Cr:Alb: WNL March 2022. Repeat ordered today Lipids: TC 180, LDL 123, HDL 44, TG 67 in Jun 2022. Repeat ordered today. Eye exam: referred to [facility] Eye Care 03/17/23 Dental: established with dental home Foot exam/peripheral pulses: referred to podiatry 06/22/22 ACEi/ARB: yes Statin: yes Lab Results Component Value Date HGBA1C 7.0 (A) 02/15/2023 Assessment & Plan (02/21/2023 11:13 AM EDT): -?inverse relationship with BP. Possible coincidental -Discontinue metformin -Start jardiance 10mg daily given that may also provide some BP lowering benefits. Reviewed med safety and SE -Continue with therapeutic lifestyle interventions such as: exercise/walk as much as possible, decrease soda/sugary beverages, drink water, eat high fiber/whole grains, fresh or frozen fruits and vegetables, avoid greasy and/or sugary foods A1c: 7.0% February 2023 (goal </= 7) Microalbumin/Cr:Alb: WNL March 2022 Lipids: TC 180, LDL 123, HDL 44, TG 67 in Jun 2022 Eye exam: established, on wait list Dental: established with dental home Foot exam/peripheral pulses: referred to podiatry 06/22/22 ACEi/ARB: yes Statin: yes Lab Results Component Value Date HGBA1C 7.0 (A) 02/15/2023 Assessment & Plan (09/07/2022 9:37 AM EST): -Reports well controlled off pharmacologic therapy -Continue with therapeutic lifestyle interventions such as: exercise/walk as much as possible, decrease soda/sugary beverages, drink water, eat high fiber/whole grains, fresh or frozen fruits and vegetables, avoid greasy and/or sugary foods A1c: 7.0% on 08/10/22 (goal </= 7) Microalbumin/Cr:Alb: WNL March 2022 Lipids: TC 180, LDL 123, HDL 44, TG 67 in Jun 2022 Eye exam: established, on wait list Dental: established with dental home Foot exam/peripheral pulses: referred to podiatry 06/22/22 ACEi/ARB: yes Statin: yes Assessment & Plan (08/10/2022 6:48 PM EST): -Congratulated on improvement in BG and BP control from lifestyle interventions -Continue with therapeutic lifestyle changes such as: exercise/walk as much as possible, avoid soda/sugary beverages, drink water, eat high fiber/whole grains, fresh or frozen fruits and veg, try to avoid greasy and/or sugary foods. -DISCONTINUE metformin 500mg BID A1c: 7.0% on 08/10/22 (Target </= 7.0), Microalbumin/Cr:Alb: WNL March 2022 Lipids: TC 180, LDL 123, HDL 44, TG 67 in Jun 2022 Eye exam: established, on wait list Dental: established with dental home Foot exam/peripheral pulses: referred to podiatry 06/22/22 TIANNA/ARB: yes Statin: yes -Follow up in 3 months, sooner as needed -RTC or call office sooner with any questions, concerns, or worsening of symptoms. Routine health maintenance 08/10/2022 Overview (12/16/2024): Colonoscopy: February 2021. Next due: February 2031 Lung CA: N/A PSA: WNL 12/14/23 Optometry: following with [facility] Eye Care & [facility] Dental: established with [facility] Dental Last PE: 12/14/24 Assessment & Plan (03/17/2023 9:52 AM EDT): -Colon CA: colonoscopy February 2021, due for 10 year follow up -Lung CA: N/A -PSA: shared decision making not to screen - March 2022 -STI: neg March 2022 -Optometry: established, waitlist for appt -Dental: established with [facility] Dental -COVID vaccine: bivalent booster administered today Assessment & Plan (02/21/2023 11:14 AM EDT): -Colon CA: colonoscopy February 2021. Request records from [facility] for f/u interval -Lung CA: N/A -PSA: shared decision making not to screen - March 2022 -STI: neg March 2022 -Optometry: established, waitlist for appt -Dental: established with [facility] Dental -COVID vaccine: bivalent booster administered today Assessment & Plan (09/07/2022 9:38 AM EST): -Colon CA: colonoscopy February 2021. Request records from [facility] [place] -Lung CA: N/A -PSA: shared decision making not to screen - March 2022 -STI: neg March 2022 -Optometry: established, waitlist for appt -Dental: established with [facility] Dental -COVID vaccine: vaccinated x 2, boosted x 1. -Outstanding IZ: shingrix dose #2 (reports [facility] dose was entered in error) Assessment & Plan (08/10/2022 6:50 PM EST): -Colon CA: colonoscopy February 2021. Request records from [facility] [place]u [place] -Lung CA: N/A -PSA: shared decision making not to screen - March 2022 -STI: neg March 2022 -Optometry: established, waitlist for appt -Dental: established with [facility] Dental -COVID vaccine: vaccinated x 2, boosted x 1. Eligible for 2nd booster -Outstanding IZ: shingrix dose #2 (reports [facility] dose was entered in error) Resolved Problems Problem Noted Date Diagnosed Date Resolved Date Rash 08/30/2024 12/16/2024 Chronic periodontitis 10/01/20222022 Supragingival dental plaque 10/01/2022 12/14/2023 COVID-19 08/10/2022 02/21/2023 Obesity (BMI 30-39.9) 08/10/20222024 Encounters Date Type Department Care Team Description 06/07/2025 Refill [facility] [address] [place] [address] Jeane Barnes FNP 06/05/2025 10:00 AM EDT Office Visit [facility] [address], [place] [phone] Jeane Barnes FNP Encounter for immunization; Type 2 diabetes mellitus without complication, without long-term current use of insulin (HCC) 06/05/2025 Travel 03/15/2025 Telephone [facility] [address] [place] [address] Jeane Barnes FNP No Show 03/15/2025 Telephone [facility] [address] [place] [address] Jeane Barnes FNP chart prep from Last 3 Months Immunizations Immunization Administration Dates Next Due Influenza High-dose Quadrivalent Preservative Fr ee 06/11/2022 Influenza Injectable Quadriv alant Preservative Free IIV4 MDCK 05/17/2019 Influenza Quadrivalent Adjuvanted 06/09/2021 Influenza injectable quadrivalent preservative f ree 05/21/2020,06/05/2019 Influenza, High Dose Seasonal, Preservative Free 06/05/2025 Pfizer Covid-19 Vaccine 12+ 10/22/2020 Pfizer Covid-19 Vaccine 12+ Bivalent 02/15/2023 Pneumococcal Conjugate PCV 20 07/12/2022 Pneumococcal Polysaccharide PPSV23 10/05/2019 Tdap 09/14/2019 Zoster, Recombinant 07/12/2022 Zoster, live 10/18/2019 Family History Medical History Relation Name Comments Liver disease Brother Heart disease Father Hypertension Father Lung cancer Father alcohol use disorder Maternal Grandfather Heart attack Maternal Grandmother Diabetes Mother Hypertension Mother Ovarian cancer Mother Relation Name Status Comments Brother Father Maternal Grandfather Maternal Grandmother Mother Social History Tobacco Use Types Packs/Day Years [...] Orientation Straight 08/09/2022 10 :38 AM EST Last Filed Vital Signs Vital Sign Reading [...] Mass Index 37.12 06/05/2025 10:50 AM EDT Plan of Treatment Upcoming Encounters Date Type Department Care Team (Late st Contact Info) Description 09/26/2025 1:00 PM EST Office Visit [facility] OPTOMETRY [address] [place] [address] Alexey, [place], OD [address] [place] [address] Health Maintenance Due Date Last Done Comments CT Colonography 1956 Dental X-Ray: Bitewings 1956 Dental X-Ray: Full Mouth 1956 FIT DNA/Cologuard 1956 FIT 1956 FOBT 1956 Sigmoidoscopy 1956 Diabetes: Foot Exam 02/28/1966 Dental Oral Exam 04/01/2023 10/01/2022 Dental Prophylaxis 04/01/2023 10/01/2022 Diabetes: Urine Protein Screening 12/13/2024 12/14/2023, 03/17/2023, 03/22/2022, Additional history exists Lipid Panel 12/13/2024 12/14/2023, 0711/2022, 06/25/2022, Additional history exists COVID-19 Vaccine ( season) 2025 02/15/2023, 07/16/2021, 11/14/2020, Additional history exists Diabetes: Hemoglobin A1C 09/05/2025 025, 12/14/2024, 12/14/2023, Additional history exists SDOH Screening 12/07/2025 12/07/2024 Alcohol/Substance Use Screening 12/14/2025 12/14/2024 Depression Screening 06/05/2026 06/05/2025, 06/05/20 25 Tobacco Screening 06/05/2026 06/05/2025 Eye Exam 08/22/2026 08/22/2024, 08/05, 08/22/2024, Additional history exists DTaP/Tdap/Td Vaccines (2 - Td or Tdap) 09/14/2029 09/14/2019 Colonoscopy 02/17/2031 02/17/2021 Colorectal Cancer Screening 02/17/2031 RSV Patients and Patients Aged 60 years or older (1 - 1-dose 75+ series) 02/28/2031 Pneumococcal Vaccine: 50+ Years Completed 07/12/2022, 10/05/2019 Zoster Vaccines Completed 09/13/2022, 03/2022, 10/18/2019 Hepatitis C Screening Completed 12/14/2023 , 03/22/2022, 09/17/2019 Influenza Vaccine Completed 06/05/2025, , 06/27/2023, Additional history exists HIB Vaccines Aged Out No longer eligi ble based on patient's age to complete this topic HPV Vaccines Aged Out No longer eligi ble based on patient's age to complete this topic Hepatitis A Vaccines Aged Out No long er eligible based on patient's age to complete this topic Hepatitis B Vaccines Aged Out No long er eligible based on patient's age to complete this topic IPV Vaccines Aged Out No longer eligi ble based on patient's age to complete this topic Meningococcal B Vaccine Aged Out No l onger eligible based on patient's age to complete this topic Meningococcal Vaccine Aged Out No carmelita figueroa eligible based on patient's age to complete this topic RSV under 20 months Aged Out No longe r eligible based on patient's age to complete this topic Rotavirus Vaccines Aged Out No longer eligible based on patient's age to complete this topic Procedures Procedure Name Priority Date/Time Associated Diagnosis Comments POCT GLYCATED HEMOGLOBIN, TOTAL Routine 06/05/2025 10:53 AM EDT Type 2 diabetes mellitus without complication, without long-term current use of insulin (HCC) POCT GLUCOSE Routine 06/05/2025 10:52 AM EDT Type 2 diabetes mellitus without complication, without long-term current use of insulin (HCC) HEPATITIS C VIRAL RNA, QUANTITATIVE, REAL-TIME PCR Routine 12/14/2023 10:20 AM EDT Routine health maintenance LIPID PANEL, STANDARD Routine 12/14/2023 10:20 AM EDT Routine health maintenance ALBUMIN, RANDOM URINE W/CREATININE Routine 12/14/2023 10:17 AM EDT Routine health maintenance PERIODIC ORAL EVALUATION - ESTABLISHED PATIENT Routine 10/01/2022 11:00 AM EST PROPHYLAXIS - ADULT Routine 10/01/2022 1 0:00 AM EST HM COLONOSCOPY Routine 02/17/2021 from Last 3 Months or Most Recently Relevant to Health Maintenance Results * (ABNORMAL) POCT Hgb A1c (06/05/2025 10:53 AM EDT) Hemoglobin A1C 7.3(A) 4.0 - 5.7 % QC Media Lot # [id number] Lot# Expiration Date [id number] Blood 06/05/2025 10:5 3 AM EDT Jeane Barnes REJECTOR POINT OF CARE TEST ENTER/EDIT ORDERABLES Final Result * POCT Glucose (06/05/2025 10:52 AM EDT) Glucose Blood, POC 120 60 - 200 mg/dL QC Media Lot # [id number] Lot# Expiration Date [id number] Blood Capillary blood specimen / Unknown 06/05/2025 10:52 AM EDT Jeane Barnes [facility] POINT OF CARE TEST ENTER/EDIT ORDERABLES Final Result * Hepatitis C Viral RNA, Quantitative, Real-Time PCR (12/14/2023 10:20 AM EDT) Pathologist [facility] Hepatitis C Viral Load <15 NOT DETECTED NOT DETECTED IU/mL [facility] HCV Log PCR <1.18 NOT DETECTED NOT DETECTED Log IU/mL [facility] Comment:This test was perfor med using Real-Time Polymerase ChainReaction.Reportable Range: 15 IU/mL to 100,000,000 IU/mL(1.18 Log IU/mL to 8.00 Log IU/mL).The analytical performance characteristics of thisassay have been determined by [employer].The modifications have not been cleared or approved bythe FDA. This assay has been validated pursuant to theCLIA regulations and is used for clinical purposes.For more information on this test, go to:http://education.[employer]/faq/MVZ83x5(This link is being provided for informational/educational purposes only.)THIS TEST WAS PERFORMED AT:[employer] [place] [id number] YAÑEZ MD Blood 12/14/2023 10:2 0 AM EDT 12/14/2023 11:40 AM EDT Jeane Barnes [facility] LAB BLOOD ORDERABLES Final Res ult [facility] [address] [place] [phone] * (ABNORMAL) Lipid Panel, Standard (12/14/2023 10:20 AM EDT) Pathologist [facility] Triglycerides 84 <150 mg/dL [facility] Comment:Desirable Triglyceri de: less than 150 mg/dLBorderline High Triglyceride 150-199 mg/dLHigh Triglyceride: 200-499 mg/dLVery High Triglyceride: greater than or equal to 5OO mg/dL Cholesterol 211(H) <200 mg/dL [facility] Comment:Desirable Cholestero l: less than 200 mg/dLBorderline High Cholesterol: 200-239 mg/dLHigh Cholesterol: greater than 239 mg/dL LDL Cholesterol Calculated 153(H) <100 mg/dL [facility] Comment:Desirable LDL: less than 100 mg/dLNear Optimal/Above Optimal LDL: 110- 129 mg/dLBorderline High LDL: 130-159 mg/dLHigh LDL: 160-189 mg/dLVery High LDL: greater than or equal to 190 mg/dL HDL Cholesterol 42 >40 mg/dL [facility] Comment:Desirable HDL: great er than 40 mg/dL Note: This HDL assay may give artificially low results in patients with liver disease. Blood Venous blood specimen / Unknown 12/14/2023 10:20 AM EDT 12/14/2023 11:40 AM EDT Jeane Barnes REJECTOR LAB BLOOD ORDERABLES Final Res ult Performing Organization Address [facility] de Phone Number [facility] [address] [place] [phone] * Albumin, Random Urine W/Creatinine (12/14/2023 10:17 AM EDT) Creatinine, Urine 90.57 mg/dL [facility] Microalbumin Urine 10.0 mg/L [facility] Microalbum Creatinine Ratio Ur 11.0 <30 ug/mg cr [facility] Comment:Albumin/Creatinine R atio Reference Ranges: Normal: < 30 ug/mg creatinine Microalbuminuria: 30 - 300 ug/mg creatinineClinical Albuminuria: > 300 ug/mg creatinine Urine 12/14/2023 10:1 7 AM EDT 12/14/2023 11:27 AM EDT Jeane Barnes REJECTOR LAB URINE ORDERABLES Final Res ult Performing Organization Address [facility] Co de Phone Number [facility] [address] [place] [phone] * Hm Colonoscopy (02/17/2021) Colonoscopy Normal Normal Comment:repet in 10 years us Aury Walter MD HEALTH MAINTENANCE Edited Res ult - Final from Last 3 Months or Most Recently Relevant to Health Maintenance Insurance Care Teams Advertising Consultant Relationship Specialty Start Date End Date Jeane Barnes FNP [address] [place] [address] PCP - General Family Medicine 06/26/21
--- OUTSIDE RECORDS SUMMARY | 2025-06-10 09:07 | XMS_ITS | Encounter Summary ---
Author Organization [employer] Address [address] [place] [address] [address] [place] [address] Care Team Providers Care Paper Products Machine Operator Name Role Phone Jeane Barnes Primary Care Provider [phone] Encounter Details Date Type Department Care Team ([facility] st Contact Info) Description 01/05/2024 Orders Only [facility] CHC MED & PEDS [address] [place], [place] [phone] Jeane Barnes FNP [address] [place], [place] [phone] Vitamin D deficiency Social History Tobacco Use Types Packs/Day Years Used Date Smoking Tobacco: Former Cigarettes Smokeless Tobacco: Never Alcohol Use Standard Drinks/Week Comments Not Currently 0 (1 standard drink = 0.6 oz pur e alcohol) Depression Answer Date Recorded Patient Health Questionnaire-9 Score 0 12/14/2023 Patient Health Questionnaire-9 Score 0 12/14/2023 Last PHQ-9: Questionnaire Data Not on file 0 12/14/2023 Housing Stability Answer Date Recorded What is your housing situation today? I have isaac peralta 06/22/[address] you li ve. Do you have problems with any of the following? None of the above 06/22/2023 Food Insecurity Answer Date Recorded Within the past 12 months, y ou worried that your food would run out before you got money to buy more: Never True 06/22/2023 Within the past 12 months,th e food you bought just didn't last and you didn't have enough money to get more: Never True Transportation Answer Date Recorded In the past 12 months, has l ack of transportation kept you from medical appts, meetings, work or from getting things needed for daily living? No 06/22/2023 Utilities Answer Date Recorded In the past 12 months, has t he electric, gas, oil or water company threatened to shut off services in your home? No 06/22/2023 Depression Answer Date Recorded Patient Health Questionnaire-2 Score 0 12/14/2023 Sex and Gender Information Value Date Recorded Sex Assigned at Male 07/05/2022 10:35 AM EDT Legal Sex Male 10:35 AM EDT Gender Identity Male 07/05/2022 10:35 AM EDT Sexual Orientation Straight 08/09/2022 10 :38 AM EST documented as of this encounter Plan of Treatment Upcoming Encounters Date Type Department Care Team (Late st Contact Info) Description 09/26/2025 1:00 PM EST Office Visit [facility] OPTOMETRY [address] [place] [address] Alexey, Odessa, OD [address] [place] [address] documented as of this encounter Visit Diagnoses Diagnosis Vitamin D deficiency documented in this encounter Additional Health Concerns Assessment Noted Time PHQ-9 Depression Total Score: 0 12/14/19 24 10:38 AM EDT documented as of this encounter Care Teams Paper Products Machine Operator Relationship Specialty Start Date End Date Jeane Barnes FNP [address] [place] [address] PCP - General Family Medicine 06/26/21 documented as of this encounter
--- OUTSIDE RECORDS SUMMARY | 2025-06-10 09:07 | XMS_ITS | Encounter Summary ---
Author Organization [employer] [facility] Address [address] [place] [address] [place] [address] Care Team Providers Care Taxation Consultant Name Role Phone Jeane Barnes Primary Care Provider [phone] Encounter Details Date Type Department Care Team (Latest Contact Info) Description 05/18/2019 Abstract [facility] CONVERSIONS Dental, Provider, DDS Social History Tobacco Use Types Packs/Day Years Used Date Smoking Tobacco: Never Assessed Sex and Gender Information Value Date Recorded Sex Assigned at Male 07/05/2022 10:35 AM EDT Legal Sex Male 10:35 AM EDT Gender Identity Male 07/05/2022 10:35 AM EDT Sexual Orientation Straight 08/09/2022 10 :38 AM EST documented as of this encounter Plan of Treatment Upcoming Encounters Date Type Department Care Team (Late st Contact Info) Description 09/26/2025 1:00 PM EST Office Visit [facility] OPTOMETRY [address] [place] [address] Alexey, Odessa, OD [address] [place] [address] documented as of this encounter Visit Diagnoses Not on filedocumented in this encounter Care Teams Taxation Consultant Relationship Specialty Start Date End Date Jeane Barnes FNP [address] [place] [address] PCP - General Family Medicine 06/26/21 documented as of this encounter
--- OUTSIDE RECORDS SUMMARY | 2025-06-10 09:07 | XMS_ITS | Encounter Summary ---
Author Organization [employer] Address [address] [place] [address] [address] [place] [address] Care Team Providers Care Um Specialist Name Role Phone Jeane Barnes Primary Care Provider [phone] Reason for Visit * Reason Comments Med Refill Encounter Details Date Type Department Care Team ([facility] Contact Info) Description 06/07/2025 Refill [facility] CHC MED & PEDS [address] [place], [place] [phone] Jeane Barnes FNP [address] [place], [place] [phone] Social History Tobacco Use Types Packs/Day Years [...] Description 09/26/2025 1:00 PM EST Office Visit [facility] OPTOMETRY [address] [place] [address] Alexey, Odessa, OD [address] [place] [address] documented as of this encounter Visit Diagnoses Not on filedocumented in this encounter Additional Health Concerns Assessment Noted Time PHQ-9 Depression Total Score: 0 06/05/20 25 10:54 AM EDT documented as of this encounter Care Teams Um Specialist Relationship Specialty Start Date End Date Jeane Barnes FNP [address] [place] [address] PCP - General Family Medicine 06/26/21 documented as of this encounter
--- OUTSIDE RECORDS SUMMARY | 2025-06-10 09:07 | XMS_ITS | Encounter Summary ---
Author Organization [employer] [facility] Address [address] [place] [address] Care Team Providers Care Computerized Table Cutter Name Role Phone Jeane Barnes Primary Care Provider [phone] Encounter Details Date Type Department Care Team (Latest Contact Info) Description 08/03/2021 Abstract [facility] CONVERSIONS Dental, Provider, DDS Social History Tobacco [...] Description 09/26/2025 1:00 PM EST Office Visit [facility] OPTOMETRY [address] [place] [address] Alexey, Odessa, OD [address] [place] [address] documented as of this encounter Visit Diagnoses Not on filedocumented in this encounter Care Teams Computerized Table Cutter Relationship Specialty Start Date End Date Jeane Barnes FNP [address] [place] [address] PCP - General Family Medicine 06/26/21 documented as of this encounter
--- OUTSIDE RECORDS SUMMARY | 2025-06-10 09:07 | XMS_ITS | Encounter Summary ---
Author Organization [employer] Address [address] [place] [address] [address] [place] [address] Care Team Providers Care Php Lamp Developer Name Role Phone Jeane Barnes AMAN Primary Care Provider [phone] Encounter Details Date Type Department Care Team (Latest Contact Info) Description 06/05/2025 Travel Social History Tobacco Use Types Packs/Day Years [...] AM EST documented as of this encounter Functional Status * Over the [...] 10:54 AM EDT Cheryl Rivera MA * Trouble falling or staying asleep, or sleeping too much Answer Date of Assessment Author Not at all 06/05/2025 10:54 AM EDT Cheryl Rivera MA * Feeling tired or having little energy Answer Date of Assessment Author Not at all 06/05/2025 10:54 AM EDT Cheryl Rivera MA * Poor appetite or overeating Answer Date of Assessment Author Not at all 06/05/2025 10:54 AM EDT Cheryl Rivera MA * Feeling bad about yourself - or that you are a failure or have let yourself or your family down Answer Date of Assessment Author Not at all 06/05/2025 10:54 AM EDT Cheryl Rivera MA * Trouble concentrating on things, such as reading the newspaper or watching television Answer Date of Assessment Author Not at all 06/05/2025 10:54 AM EDT Cheryl Rivera MA * Moving or speaking so slowly that other people could have noticed? Or the opposite - being so fidgety or restless that you have been moving around a lot more than usual. Answer Date of Assessment Author Not at all 06/05/2025 10:54 AM EDT Cheryl Rivera MA * Thoughts that you would be better off or hurting yourself in some way Answer Date of Assessment Author Not at all 06/05/2025 10:54 AM EDT Cheryl Rivera MA * Patient Health Questionnaire-9 Score Answer Date of Assessment Author 0 06/05/2025 10:54 AM EDT Cheryl Rivera MA * Over the last 2 weeks, how often have you been bothered by any of the following problems? Question Answer Date of Assessment Author Feeling nervous, anxious, or on edge 0 06/05/2025 10:54 AM EDT Cheryl Rivera MA Not being able to stop or co ntrol worrying 0 06/05/2025 10:54 AM EDT Cheryl Rivera MA Worrying too much about diff erent things 0 06/05/2025 10:54 AM EDT Cheryl Rivera MA Trouble relaxing 0 06/05/2025 10:54 AM [...] Description 09/26/2025 1:00 PM EST Office Visit [facility] OPTOMETRY [address] [place] [address] Odessa Blackburn, OD [address] [place] [address] documented as of this encounter Visit Diagnoses Not on filedocumented in this encounter Additional Health Concerns Assessment Noted Time PHQ-9 Depression Total Score: 0 06/05/20 10:54 AM EDT documented as of this encounter Care Teams Php Lamp Developer Relationship Specialty Start Date End Date Jeane Barnes FNP [address] [place] [address] PCP - General Family Medicine 06/26/21 documented as of this encounter
[2025-06-10 11:22] LABS: MANUAL DIFF FLAG NO
[2025-06-10 11:33] LABS: Hematocrit 45.2 % (42.0-52.0); Hemoglobin 14.7 g/dl (14.0-18.0); Imm Gran Abs Auto 0.02 X10*3/uL (0.00-0.03); Imm Gran Pct Auto 0.4 % (0.0-0.4); Lymphocytes Absolute Auto 2.0 X10*3/uL (1.2-4.9); Mean Corpuscular HGB Conc 32.5 g/dl (31.0-36.0); Mean Corpuscular Hemoglobin 28.4 pg (27.0-33.0); Mean Corpuscular Volume 87.3 fL (80.0-98.0); NRBC Abs Auto 0.000 X10*3/uL (0.0-0.012); NRBC Pct Auto 0.0 /100WBC (0.0-0.2); Platelet Count 228 X10*3/uL (160-400); Red Blood Count 5.18 X10*6/uL (4.60-5.80); White Blood Count 5.7 X10*3/uL (4.8-10.8)
[2025-06-10 12:01] LABS: Alanine Aminotransferase 17 U/L (0-40); Albumin Level 4.5 g/dL (3.5-5.0); Alkaline Phosphatase 89 U/L (39-117); Anion Gap 12 (12-20); Aspartate Amino Transferase 26 U/L (5-37); Blood Urea Nitrogen 13 mg/dL (9-16); Calcium 9.4 mg/dL (8.4-10.2); Carbon Dioxide 25 mmol/L (22-29); Chloride 109 mmol/L (96-108); Cholesterol 163 mg/dL (<200); Estimated Glomerular Filt Rate > 60; HDL Cholesterol 40 mg/dL (>40); Microalbum/Creatinine Ratio Ur 9.1 ug/mg cr (<30); Potassium 4.1 mmol/L (3.3-5.1); Sodium 142 mmol/L (135-145); Total Protein 7.2 g/dL (6.5-8.0); Triglycerides 81 mg/dL (<150)
[2025-06-10 12:06] LABS: HIV Num 1 0.06 S/CO (0.00-0.99); Prostate Specific Antigen 2.54 ng/mL (<0.05-4.0)
[2025-06-12 20:08] LABS: HCV Log PCR <1.18 NOT DETECTED Log IU/mL (NOT DETECTED); HepC Viral Load <15 NOT DETECTED IU/mL (NOT DETECTED)
== END 2025-06-10 08:32 | disposition home or self-care (01) ==
LOC: HO.HHCL 08:31
PROVIDERS: PCP Registered Nurse; Visit Provider Registered Nurse
DX: Z00.00 Encounter for general adult medical examination without abnormal findings (principal); Z11.4 Encounter for screening for human immunodeficiency virus [HIV]; Z11.59 Encounter for screening for other viral diseases; Z12.5 Encounter for screening for malignant neoplasm of prostate; Z13.1 Encounter for screening for diabetes mellitus; Z13.29 Encounter for screening for other suspected endocrine disorder; Z13.6 Encounter for screening for cardiovascular disorders
CPT/HCPCS: 36415; 80053; 80061; 82043; 82306; 82570; 83036; 84153; 84443; 85025; 86592; 87389; 87522